=== PATIENT | male | born 1945 | race Caucasian/White ===

== ENCOUNTER 2021-12-12 12:32 | Emergency (ER) | payer OTHER ==
[2021-12-12 12:39] VITALS: BP 106/65; PULSE 67; RESP 18; TEMP 98; BMI 26.6
[2021-12-12] MEDS ORDERED: BEBTELOVIMAB (EUA) 175 MG/2 ML VIAL IVPUSH ONE (13:17)
== END 2021-12-12 15:50 | disposition home or self-care (01) ==
LOC: JCOVINFU 12:32
DX: U07.1 COVID-19 (principal)
CPT/HCPCS: 99284-25; M0222; Q0222

== ENCOUNTER 2023-04-01 04:09 | Day surgery (SDC) | payer OTHER ==
[2023-03-31 08:47] VITALS: BMI 24.9
[2023-04-01] MEDS ORDERED: FENTANYL CITRATE/PF 50 MCG/ML VIAL ONE (11:36)
[2023-04-01] MEDS ORDERED: MIDAZOLAM HCL 2 MG/2 ML SINGLE DOSE VIAL ONE (11:36)
[2023-04-01] MEDS ORDERED: SODIUM CHLORIDE 500 ML IV ONE (12:10)
[2023-04-01] MEDS ORDERED: FENTANYL CITRATE/PF 50 MCG/ML VIAL IVPUSH ONE ×2 (12:10→12:23)
[2023-04-01] MEDS ORDERED: MIDAZOLAM HCL 2 MG/2 ML SINGLE DOSE VIAL IVPUSH ONE ×2 (12:10→12:23)
[2023-04-01 14:24] VITALS: RESP 18; TEMP 98
[2023-04-01 14:38] VITALS: BP 136/76; PULSE 74
== END 2023-04-01 14:30 | disposition home or self-care (01) ==
LOC: JRADIR 04:09
PROVIDERS: ATTEND Student in an Organized Health Care Education/Training Program
PROC: 07DC3ZX Extraction of Pelvis Lymphatic, Percutaneous Approach, Diagnostic (ICD-10-PCS; principal; 2023-04-01)
DX: C61 Malignant neoplasm of prostate (principal)
CPT/HCPCS: 49180; 77012-TC; 88305-TC

== ENCOUNTER 2024-04-30 21:36 | Inpatient (IN) | payer OTHER ==
[2024-04-30] MEDS ORDERED: ACETAMINOPHEN INJECTION 100 ML ONE (22:07)
[2024-04-30] MEDS: ACETAMINOPHEN 1000 MG/100 ML BAG IVPB ONE (22:19)
[2024-04-30] MEDS: SODIUM CHLORIDE 0.9% 500 ML INFUS.BAG IV ONE (22:19)
[2024-04-30 22:34] LABS: EOS % 0.1 % (0-4.5); HEMATOCRIT 35.7 % (35.4-49); HEMOGLOBIN 10.9 GM/dL (11.7-16.9); LYMPH % 91.7 % (8-40); MCH 29.3 pg (25.7-33.7); MCHC 30.4 g/dl (32.0-35.9); MEAN CELL VOLUME 96.3 fl (80-96); MEAN PLT VOLUME 8.6 fl (7.5-11.1); NEUT % 8.2 % (42.8-82.8); PLATELET COUNT 191 10^3/uL (134-434); RBC 3.71 M/mm3 (4.00-5.60)
[2024-04-30] MEDS ORDERED: FAMOTIDINE 20 MG/50 ML IVPB 20 MG/50 ML MG IVPB ONE (22:37)
[2024-04-30] MEDS ORDERED: MAG HYDROX/AL HYDROX/SIMETH 30 ML UNIT-DOSE CUP ONE (22:37)
[2024-04-30 22:38] LABS: INR 1.5 (0.83-1.09); PROTHROMBIN TIME (PATIENT) 16.3 SEC (9.7-13.0); WHITE BLOOD COUNT 217.3 K/mm3 (4.0-10.0)
[2024-04-30] MEDS: FAMOTIDINE 20 MG/50 ML IVPB 20 MG/50 ML MG IVPB ONE (22:38)
[2024-04-30] MEDS: MAG HYDROX/AL HYDROX/SIMETH 30 ML UNIT-DOSE CUP PO ONE (22:38)
[2024-04-30 22:43] LABS: POTASSIUM 4.7 mmol/L (3.5-5.1)
[2024-04-30 22:45] LABS: ALBUMIN 3.5 g/dl (3.4-5.0); BLOOD UREA NITROGEN 18.8 mg/dL (7-18); CALCIUM 8.9 mg/dL (8.5-10.1)
[2024-04-30 22:48] LABS: CREATININE 1.1 mg/dL (0.55-1.3)
[2024-04-30 22:50] LABS: BILIRUBIN,TOTAL 1.3 mg/dL (0.2-1); TOT PROT 6.7 g/dl (6.4-8.2)
[2024-04-30 23:07] LABS: PLATELET ESTIMATE ADEQUATE
[2024-04-30] MEDS ORDERED: morphine SULFATE 4 MG/ML VIAL ONE (23:43)
[2024-04-30] MEDS: morphine CARPU-JECT 4 MG/1 ML DISP.SYRIN IVPUSH ONE (23:44)
[2024-04-30 23:54] LABS: PHOSPHOROUS 3.6 mg/dL (2.5-4.9)
[2024-04-30 23:58] LABS: N-TERMINAL BNP 4917.3 pg/ml (5-450)
[2024-05-01] MEDS ORDERED: morphine SULFATE 4 MG/ML VIAL ONE (00:18)
[2024-05-01] MEDS: morphine CARPU-JECT 4 MG/1 ML DISP.SYRIN IVPUSH ONE (00:21)
[2024-05-01] MEDS: FUROSEMIDE 40 MG/4 ML INJECTABLE VIAL IVPUSH ONE (02:50)
[2024-05-01] MEDS: ALBUTEROL SO4 2.5/IPRATROPIUM 0.5 INH SOL 3 ML VIAL.NEB. NEB ONE (03:09)
[2024-05-01 03:30] VITALS: BMI 27.0
[2024-05-01] MEDS ORDERED: HYOSCYAMINE SULFATE PO SCH (06:00)
[2024-05-01] MEDS: GABAPENTIN 400 MG CAPSULE PO SCH (06:09)
[2024-05-01] MEDS: ALBUTEROL SO4 2.5/IPRATROPIUM 0.5 INH SOL 3 ML VIAL.NEB. NEB PRN (07:20)
[2024-05-01 07:29] LABS: HEMATOCRIT 34.4 % (35.4-49); HEMOGLOBIN 10.5 GM/dL (11.7-16.9); MCH 29.6 pg (25.7-33.7); MCHC 30.5 g/dl (32.0-35.9); MEAN CELL VOLUME 96.9 fl (80-96); MEAN PLT VOLUME 9.2 fl (7.5-11.1); PLATELET COUNT 187 10^3/uL (134-434); RBC 3.55 M/mm3 (4.00-5.60); RDW 15.2 % (11.9-15.9)
[2024-05-01] MEDS ORDERED: PIPERACILLIN/TAZOB 3.375 GM 3.375 GM in DEXTROSE 5%-WATER - 50 ML IVPB SCH (07:30)
[2024-05-01 07:58] LABS: ALBUMIN 3.3 g/dl (3.4-5.0); BLOOD UREA NITROGEN 17.6 mg/dL (7-18); CALCIUM 8.5 mg/dL (8.5-10.1); MAGNESIUM 2.1 mg/dL (1.8-2.4)
[2024-05-01 08:01] LABS: CREATININE 1.2 mg/dL (0.55-1.3); PHOSPHOROUS 4.2 mg/dL (2.5-4.9)
[2024-05-01 08:02] LABS: BILIRUBIN,TOTAL 1.1 mg/dL (0.2-1); TOT PROT 6.3 g/dl (6.4-8.2)
[2024-05-01 08:11] LABS: BILIRUBIN,DIRECT 0.3 mg/dL (0.0-0.2)
[2024-05-01 08:56] LABS: WHITE BLOOD COUNT 223.9 K/mm3 (4.0-10.0)
[2024-05-01 09:26] LABS: EPI CELLS 1 /uL (0-25.1); HYALINE CASTS 0 /uL (0-3.1); PH,URINE 5.5 (5.0-8.0); URINE APPEARANCE CLEAR; URINE BACTERIA 7 /uL (0-1359); URINE BILIRUBIN NEGATIVE (NEGATIVE); URINE COLOR YELLOW; URINE GLUCOSE (UA) NEGATIVE (NEGATIVE); URINE KETONE NEGATIVE (NEGATIVE); URINE LEUK ESTERASE NEGATIVE (NEGATIVE); URINE NITRITE NEGATIVE (NEGATIVE); URINE PROTEIN NEGATIVE (NEGATIVE); URINE RBC 15 /uL (0-23.9); URINE UROBILINOGEN 0.2 mg/dL (0.2-1.0); URINE WBC 7 /uL (0-25.8)
[2024-05-01 11:00] LABS: ERYTHROCYTE SEDIMENTATION RATE 21 mm/hr (0-20)
[2024-05-01 12:40] LABS: HEPATITIS B SURFACE AG MATERN NON-REACTIVE (NONREACTIVE)
[2024-05-01] MEDS: POLYETHYLENE GLYCOL (HEALTHYLAX) 3350 17 GM PACKET PO SCH (12:46)
[2024-05-01] MEDS: PANTOPRAZOLE 40 MG TABLET PO SCH (12:48)
[2024-05-01] MEDS: PIPERACILLIN/TAZOB 3.375 GM 50 ML IVPB SCH ×2 (12:48→17:03)
[2024-05-01] MEDS: ENOXAPARIN NA (PORCINE) 40 MG/0.4 ML DISP.SYRIN SQ SCH (12:48)
[2024-05-01] MEDS: MULTIVITAMINS (DAILY MVI) TABLET (FP) PO SCH (12:49)
[2024-05-01] MEDS ORDERED: ALBUTEROL SO4 0.083% IH SOL 2.5 MG/3 ML VIAL.NEB. NEB PRN (13:35)
[2024-05-01] MEDS ORDERED: SODIUM CHLORIDE 1,000 ML IV SCH (14:30)
[2024-05-01] MEDS: SODIUM CHLORIDE 1,000 ML IV SCH (14:50)
[2024-05-01 16:52] LABS: PREALBUMIN 14.8 mg/dl (20-40)
[2024-05-01] MEDS: ACETAMINOPHEN 1000 MG/100 ML BAG IVPB PRN (17:07)
[2024-05-01] MEDS ORDERED: AMOX TR/POT CLAV 875MG/125MG TABLETS (FP) PO SCH (17:30)
[2024-05-01] MEDS: metoPROLOL SUCCINATE 25 MG TAB.SR.24H (FP) PO SCH (18:13)
[2024-05-01] MEDS: FUROSEMIDE 40 MG/4 ML INJECTABLE VIAL IVPUSH SCH (18:13)
[2024-05-01] MEDS: AMITRIPTYLINE HCL 25 MG TABLET PO SCH (21:04)
[2024-05-01] MEDS: TAMSULOSIN HCL 0.4 MG CAP PO SCH (21:05)
[2024-05-02 07:49] LABS: HEMOGLOBIN 10.8 GM/dL (11.7-16.9); MCHC 30.8 g/dl (32.0-35.9); MEAN CELL VOLUME 97.5 fl (80-96); MEAN PLT VOLUME 8.9 fl (7.5-11.1); PLATELET COUNT 179 10^3/uL (134-434); RBC 3.58 M/mm3 (4.00-5.60); RDW 15.8 % (11.9-15.9)
[2024-05-02 08:01] LABS: WHITE BLOOD COUNT 222.8 K/mm3 (4.0-10.0)
[2024-05-02 08:08] LABS: POTASSIUM 3.7 mmol/L (3.5-5.1)
[2024-05-02 08:10] LABS: ALBUMIN 3.3 g/dl (3.4-5.0); BLOOD UREA NITROGEN 20.1 mg/dL (7-18); CALCIUM 8.8 mg/dL (8.5-10.1); MAGNESIUM 2.3 mg/dL (1.8-2.4)
[2024-05-02 08:13] LABS: CREATININE 1.2 mg/dL (0.55-1.3)
[2024-05-02 08:14] LABS: PHOSPHOROUS 3.6 mg/dL (2.5-4.9)
[2024-05-02 08:15] LABS: TOT PROT 6.3 g/dl (6.4-8.2)
[2024-05-02 12:41] LABS: ANISOCYTOSIS 1+; MACROCYTOSIS 1+
[2024-05-02] MEDS: AMOX TR/POT CLAV 875MG/125MG TABLETS (FP) PO SCH (18:33)
[2024-05-02 22:09] LABS: FIBROSIS SCORE. 0.71 (0.00-0.21); HCV ALPHA 2 MACRO CHART 198 mg/dL (110-276); NECRO.INFLAM ACT.SCORE 0.13 (0.00-0.17); NECROINFLAM. ACTIVITY GRADE A0-No activity (.)
[2024-05-02] MEDS: ZOLPIDEM TARTRATE 5 MG TABLET PO PRN (22:35)
[2024-05-03 07:49] LABS: HEMATOCRIT 32.6 % (35.4-49); MCH 29.5 pg (25.7-33.7); MCHC 30.6 g/dl (32.0-35.9); MEAN CELL VOLUME 96.5 fl (80-96); MEAN PLT VOLUME 9.2 fl (7.5-11.1); PLATELET COUNT 189 10^3/uL (134-434); RBC 3.38 M/mm3 (4.00-5.60); RDW 15.5 % (11.9-15.9)
[2024-05-03 07:58] LABS: WHITE BLOOD COUNT 213.6 K/mm3 (4.0-10.0)
[2024-05-03 08:01] LABS: POTASSIUM 3.5 mmol/L (3.5-5.1)
[2024-05-03 08:05] LABS: CALCIUM 8.6 mg/dL (8.5-10.1)
[2024-05-03 08:06] LABS: ALBUMIN 3.1 g/dl (3.4-5.0); MAGNESIUM 2.3 mg/dL (1.8-2.4)
[2024-05-03 08:09] LABS: PHOSPHOROUS 4.1 mg/dL (2.5-4.9)
[2024-05-03 08:10] LABS: BILIRUBIN,TOTAL 0.7 mg/dL (0.2-1)
[2024-05-03] MEDS: POTASSIUM CHLORIDE TABS 20 MEQ TABLET.ER (FP) PO ONE (17:49)
[2024-05-04 06:57] LABS: HEMATOCRIT 32.9 % (35.4-49); MCH 29.6 pg (25.7-33.7); MCHC 30.4 g/dl (32.0-35.9); MEAN CELL VOLUME 97.5 fl (80-96); MEAN PLT VOLUME 9.2 fl (7.5-11.1); PLATELET COUNT 192 10^3/uL (134-434); RBC 3.37 M/mm3 (4.00-5.60); RDW 15.5 % (11.9-15.9)
[2024-05-04 07:14] LABS: POTASSIUM 3.2 mmol/L (3.5-5.1)
[2024-05-04 07:17] LABS: WHITE BLOOD COUNT 211.7 K/mm3 (4.0-10.0)
[2024-05-04 07:24] LABS: BLOOD UREA NITROGEN 23.3 mg/dL (7-18); CALCIUM 8.7 mg/dL (8.5-10.1)
[2024-05-04 07:27] LABS: CREATININE 1.2 mg/dL (0.55-1.3)
[2024-05-04 07:28] LABS: PHOSPHOROUS 3.3 mg/dL (2.5-4.9)
[2024-05-04 07:29] LABS: BILIRUBIN,TOTAL 0.6 mg/dL (0.2-1); TOT PROT 5.9 g/dl (6.4-8.2)
[2024-05-04] MEDS: POTASSIUM CHLORIDE TABS 20 MEQ TABLET.ER (FP) PO ONE (08:10)
[2024-05-04] MEDS: KCL 10 MEQ IVPB 10 MEQ/100 ML INFUS.BAG IVPB SCH (08:11)
[2024-05-04] MEDS: KCL 20 MEQ PREMIX BAG 20 MEQ/100 ML INFUS.BAG IVPB ONE (08:33)
[2024-05-04] MEDS: EMPAGLIFLOZIN (JARDIANCE) 10 MG TABLET PO SCH (12:15)
[2024-05-04] MEDS: SACUBITRIL/VALSARTAN 24 MG-26 MG TABLET PO SCH (14:05)
[2024-05-04] MEDS ORDERED: LIDOCAINE VISCOUS 2% ORAL/TOP 15 ML UNIT-DOSE CUP MM PRN (16:41)
[2024-05-04] MEDS: LYTES/YERBA SANTA 60 ML SPRAY MM SCH (21:19)
[2024-05-05 07:37] LABS: HEMOGLOBIN 11.1 GM/dL (11.7-16.9); MCHC 30.9 g/dl (32.0-35.9); MEAN CELL VOLUME 97.2 fl (80-96); MEAN PLT VOLUME 9.4 fl (7.5-11.1); PLATELET COUNT 191 10^3/uL (134-434); RDW 15.8 % (11.9-15.9)
[2024-05-05 07:41] LABS: WHITE BLOOD COUNT 215.5 K/mm3 (4.0-10.0)
[2024-05-05 07:56] LABS: POTASSIUM 3.8 mmol/L (3.5-5.1)
[2024-05-05 08:00] LABS: ALBUMIN 3.3 g/dl (3.4-5.0); BLOOD UREA NITROGEN 20.4 mg/dL (7-18); CALCIUM 9.1 mg/dL (8.5-10.1); MAGNESIUM 2.3 mg/dL (1.8-2.4)
[2024-05-05 08:04] LABS: CREATININE 1.1 mg/dL (0.55-1.3); PHOSPHOROUS 4.1 mg/dL (2.5-4.9)
[2024-05-05 08:05] LABS: BILIRUBIN,TOTAL 0.7 mg/dL (0.2-1); TOT PROT 6.6 g/dl (6.4-8.2)
[2024-05-05] MEDS: GABAPENTIN 100 MG CAPSULE PO SCH (09:13)
[2024-05-06] MEDS: EMPAGLIFLOZIN (JARDIANCE) 10 MG TABLET PO SCH (06:42)
[2024-05-06 08:45] VITALS: BP 100/60; RESP 18; TEMP 98
[2024-05-06] MEDS: FUROSEMIDE 20 MG TABLET (FP) PO ONE (09:38)
[2024-05-06 15:25] VITALS: PULSE 88
== END 2024-05-06 17:04 | disposition home or self-care (01) | DRG 840 ==
LOC: JER 21:36 → JERBED 23:25 → JICU 05-01 01:05 → J2W 05-01 19:30
PROVIDERS: ADMIT Internal Medicine
DX: C91.10 Chronic lymphocytic leukemia of B-cell type not having achieved remission (principal); I50.21 Acute systolic (congestive) heart failure; D84.9 Immunodeficiency, unspecified; E87.20 Acidosis, unspecified; I24.89 Other forms of acute ischemic heart disease; J98.11 Atelectasis; N40.0 Benign prostatic hyperplasia without lower urinary tract symptoms; I49.8 Other specified cardiac arrhythmias; R91.1 Solitary pulmonary nodule; I11.0 Hypertensive heart disease with heart failure; C61 Malignant neoplasm of prostate
CPT/HCPCS: 0241U-QW; 36415; 70450-TC; 71045-TC-FY; 71250-TC; 74174-TC; 76705-TC; 80053; 80061; 81003; 82172; 82248; 82550; 82977; 83010; 83036; 83605; 83690; 83735; 83880; 83883; 84100; 84134; 84155; 84165; 84439; 84443; 84460; 84484; 85025; 85610; 85651; 86140; 86480; 86704; 86706; 86707; 86709; 86850; 86900; 86901; 87040; 87086; 87340; 87350; 87517; 87522; 87902; 88300-TC; 93005; 93010; 93306-TC; 94640; 99285-25; J0131; Q9967

== ENCOUNTER 2024-05-15 14:34 | Observation (INO) | payer OTHER ==
[2024-05-15 15:49] LABS: HEMATOCRIT 37.9 % (35.4-49); HEMOGLOBIN 11.9 GM/dL (11.7-16.9); MCH 30.1 pg (25.7-33.7); MCHC 31.3 g/dl (32.0-35.9); MEAN CELL VOLUME 96.2 fl (80-96); MEAN PLT VOLUME 9.5 fl (7.5-11.1); PLATELET COUNT 149 10^3/uL (134-434); RBC 3.94 M/mm3 (4.00-5.60); RDW 16.3 % (11.9-15.9)
[2024-05-15 15:52] LABS: WHITE BLOOD COUNT 178.5 K/mm3 (4.0-10.0)
[2024-05-15 16:11] LABS: POTASSIUM 3.9 mmol/L (3.5-5.1)
[2024-05-15 16:15] LABS: ALBUMIN 3.8 g/dl (3.4-5.0); BLOOD UREA NITROGEN 24.7 mg/dL (7-18)
[2024-05-15 16:18] LABS: CREATININE 1.3 mg/dL (0.55-1.3)
[2024-05-15 16:19] LABS: BILIRUBIN,TOTAL 0.6 mg/dL (0.2-1); TOT PROT 7.1 g/dl (6.4-8.2)
[2024-05-15 16:38] LABS: ANISOCYTOSIS 1+; MACROCYTOSIS 1+
[2024-05-15] MEDS ORDERED: PATIENT'S OWN MEDICATION (NON-FORMULARY) (Alfuzosin Hcl [Alfuzosin Hcl Er] 10 MG Tab.Er.24 PO SCH (22:00)
[2024-05-15] MEDS: PANTOPRAZOLE 40 MG TABLET PO SCH (22:42)
[2024-05-15] MEDS: ZOLPIDEM TARTRATE 5 MG TABLET PO PRN (22:42)
[2024-05-15] MEDS: SACUBITRIL/VALSARTAN 24 MG-26 MG TABLET PO SCH (22:42)
[2024-05-15] MEDS: GABAPENTIN 100 MG CAPSULE PO SCH (22:42)
[2024-05-15] MEDS: AMITRIPTYLINE HCL 25 MG TABLET PO SCH (22:49)
[2024-05-16 00:15] VITALS: BMI 25.7
[2024-05-16] MEDS: metoPROLOL SUCCINATE 25 MG TAB.SR.24H (FP) PO ONE (01:06)
[2024-05-16] MEDS: EMPAGLIFLOZIN (JARDIANCE) 10 MG TABLET PO SCH (06:39)
[2024-05-16 07:21] LABS: HEMATOCRIT 33.5 % (35.4-49); MCH 30.6 pg (25.7-33.7); MCHC 32.7 g/dl (32.0-35.9); MEAN CELL VOLUME 93.6 fl (80-96); MEAN PLT VOLUME 9.4 fl (7.5-11.1); PLATELET COUNT 132 10^3/uL (134-434); RBC 3.58 M/mm3 (4.00-5.60); RDW 15.7 % (11.9-15.9)
[2024-05-16 07:30] LABS: WHITE BLOOD COUNT 195.7 K/mm3 (4.0-10.0)
[2024-05-16 07:56] LABS: POTASSIUM 3.8 mmol/L (3.5-5.1)
[2024-05-16 07:57] LABS: ALBUMIN 3.4 g/dl (3.4-5.0); BLOOD UREA NITROGEN 20.8 mg/dL (7-18); MAGNESIUM 2.3 mg/dL (1.8-2.4)
[2024-05-16 08:01] LABS: CREATININE 1.2 mg/dL (0.55-1.3)
[2024-05-16 08:02] LABS: PHOSPHOROUS 3.9 mg/dL (2.5-4.9)
[2024-05-16 08:03] LABS: BILIRUBIN,TOTAL 0.6 mg/dL (0.2-1); TOT PROT 6.2 g/dl (6.4-8.2)
[2024-05-16 09:51] LABS: ANISOCYTOSIS 1+; MACROCYTOSIS 0
[2024-05-16] MEDS ORDERED: HYOSCYAMINE SULFATE PO SCH (10:00)
[2024-05-16] MEDS ORDERED: LYTES/YERBA SANTA 60 ML SPRAY MM SCH (10:00)
[2024-05-16] MEDS: ENOXAPARIN NA (PORCINE) 40 MG/0.4 ML DISP.SYRIN SQ SCH (11:05)
[2024-05-16] MEDS: metoPROLOL SUCCINATE 25 MG TAB.SR.24H (FP) PO SCH (11:07)
[2024-05-16 13:05] LABS: N-TERMINAL BNP 1286.2 pg/ml (5-450)
[2024-05-16 14:16] VITALS: BP 126/51; PULSE 83; RESP 18; TEMP 97.2
== END 2024-05-16 14:20 | disposition home or self-care (01) ==
LOC: JER 14:34 → JERBED 20:05 → J4S 21:54
PROVIDERS: ADMIT Internal Medicine
PROC: 3E023GC Introduction of Other Therapeutic Substance into Muscle, Percutaneous Approach (ICD-10-PCS; principal; 2024-05-15)
DX: I48.91 Unspecified atrial fibrillation (principal); I11.0 Hypertensive heart disease with heart failure; C91.10 Chronic lymphocytic leukemia of B-cell type not having achieved remission; K58.9 Irritable bowel syndrome, unspecified; I49.3 Ventricular premature depolarization; R00.8 Other abnormalities of heart beat; C61 Malignant neoplasm of prostate
CPT/HCPCS: 36415; 71045-TC-FY; 80053; 82962; 83735; 83880; 84100; 84439; 84484; 85025; 93005; 93010; 96361; 96365; 96366; 96372; 96375; 99285-25; G0378

== ENCOUNTER 2024-05-25 09:30 | Day surgery (SDC) | payer OTHER ==
[2024-05-25] MEDS: SODIUM CHLORIDE 250 ML IV ONE (10:15)
[2024-05-25 11:20] LABS: HEMATOCRIT 35.6 % (35.4-49); HEMOGLOBIN 10.8 GM/dL (11.7-16.9); MCH 29.6 pg (25.7-33.7); MCHC 30.4 g/dl (32.0-35.9); MEAN CELL VOLUME 97.2 fl (80-96); MEAN PLT VOLUME 9.6 fl (7.5-11.1); PLATELET COUNT 119 10^3/uL (134-434); RBC 3.67 M/mm3 (4.00-5.60); RDW 15.9 % (11.9-15.9)
[2024-05-25 11:31] LABS: WHITE BLOOD COUNT 207.8 K/mm3 (4.0-10.0)
[2024-05-25 11:43] LABS: POTASSIUM 4.3 mmol/L (3.5-5.1)
[2024-05-25 11:50] LABS: ALBUMIN 3.5 g/dl (3.4-5.0); BLOOD UREA NITROGEN 20.4 mg/dL (7-18); CALCIUM 8.8 mg/dL (8.5-10.1); MAGNESIUM 2.1 mg/dL (1.8-2.4)
[2024-05-25 11:52] LABS: URIC ACID 3.4 mg/dL (2.6-7.2)
[2024-05-25 11:53] LABS: CREATININE 1.4 mg/dL (0.55-1.3)
[2024-05-25 11:54] LABS: BILIRUBIN,TOTAL 0.5 mg/dL (0.2-1); TOT PROT 6.5 g/dl (6.4-8.2)
[2024-05-25] MEDS: DIPHENHYDRAMINE 25 MG in SODIUM CHLORIDE 50 ML IVPB ONE (12:08)
[2024-05-25] MEDS: ACETAMINOPHEN 325 MG TABLET (FP) PO ONE (12:08)
[2024-05-25] MEDS: RITUXIMAB PVVR IVPB ONE (12:34)
[2024-05-25] MEDS: SODIUM CHLORIDE IVPB ONE (12:34)
[2024-05-25] MEDS: SODIUM CHLORIDE 750 ML IV ONE (13:18)
[2024-05-25] MEDS: FAMOTIDINE 20 MG/50 ML IVPB 20 MG/50 ML MG IVPB ONE (13:18)
[2024-05-25] MEDS: DEXAMETHASONE SOD PHOSPHATE 4 MG/1 ML VIAL IVPUSH ONE (13:20)
[2024-05-25] MEDS ORDERED: DEXAMETHASONE SOD PHOSPHATE 10 MG/1 ML VIAL ONE (13:25)
[2024-05-25] MEDS: methylPREDNISolone NA SUCC 125 MG/2 ML VIAL IVPUSH ONE (15:40)
[2024-05-25 17:40] VITALS: RESP 18
[2024-05-25 18:39] VITALS: TEMP 98.2
[2024-05-25 19:18] VITALS: BP 104/47; PULSE 88
== END 2024-05-25 19:25 | disposition home or self-care (01) ==
LOC: JONCCHEMO 09:30
PROVIDERS: ATTEND Internal Medicine Hematology & Oncology
PROC: 3E03305 Introduction of Other Antineoplastic into Peripheral Vein, Percutaneous Approach (ICD-10-PCS; principal; 2024-05-25)
PROC: 3E0333Z Introduction of Anti-inflammatory into Peripheral Vein, Percutaneous Approach (ICD-10-PCS; 2024-05-25)
DX: Z51.11 Encounter for antineoplastic chemotherapy (principal); C91.10 Chronic lymphocytic leukemia of B-cell type not having achieved remission
CPT/HCPCS: 36415; 80053; 83615; 83735; 84550; 85025; 96368; 96413; 96415; J1100; Q5119

== ENCOUNTER 2024-05-27 08:25 | Observation (INO) | payer OTHER ==
[2024-05-27 08:52] LABS: URINE APPEARANCE CLEAR; URINE BILIRUBIN NEGATIVE (NEGATIVE); URINE COLOR YELLOW; URINE GLUCOSE (UA) 3+ (NEGATIVE); URINE KETONE NEGATIVE (NEGATIVE); URINE LEUK ESTERASE NEGATIVE (NEGATIVE); URINE NITRITE NEGATIVE (NEGATIVE); URINE PROTEIN NEGATIVE (NEGATIVE); URINE UROBILINOGEN 0.2 mg/dL (0.2-1.0)
[2024-05-27 09:05] LABS: VENOUS BASE EXCESS -4.1 mmol/L (-2-2); VENOUS O2 SATURATION 71.7 % (70-80); VENOUS PCO2 33.4 mmHg (38-52); VENOUS PH 7.394 (7.310-7.410)
[2024-05-27 09:06] LABS: HEMATOCRIT 35.7 % (35.4-49); HEMOGLOBIN 11.6 GM/dL (11.7-16.9); MCH 30.2 pg (25.7-33.7); MCHC 32.4 g/dl (32.0-35.9); MEAN CELL VOLUME 93.3 fl (80-96); MEAN PLT VOLUME 9.6 fl (7.5-11.1); PLATELET COUNT 100 10^3/uL (134-434); RBC 3.83 M/mm3 (4.00-5.60); RDW 16.3 % (11.9-15.9)
[2024-05-27] MEDS: SODIUM CHLORIDE 0.9% 500 ML INFUS.BAG IV ONE (09:09)
[2024-05-27 09:12] LABS: WHITE BLOOD COUNT 49.9 K/mm3 (4.0-10.0)
[2024-05-27 09:14] LABS: INR 1.14 (0.83-1.09); PROTHROMBIN TIME (PATIENT) 12.4 SEC (9.7-13.0)
[2024-05-27 09:17] LABS: ACTIVATED PTT 24.4 SECONDS (25.2-36.5)
[2024-05-27 09:46] LABS: CHLORIDE 111 mmol/L (98-107); SODIUM 138 mmol/L (136-145)
[2024-05-27 09:48] LABS: CALCIUM 8.4 mg/dL (8.5-10.1)
[2024-05-27 09:49] LABS: ALBUMIN 3.4 g/dl (3.4-5.0); BLOOD UREA NITROGEN 33.7 mg/dL (7-18); CO2 23 mmol/L (21-32); GLUCOSE,RANDOM 107 mg/dL (74-106); MAGNESIUM 2.6 mg/dL (1.8-2.4)
[2024-05-27 09:52] LABS: CREATININE 1.1 mg/dL (0.55-1.3); PHOSPHOROUS 4.5 mg/dL (2.5-4.9); SGOT/AST 66 U/L (15-37); SGPT/ALT 29 U/L (13-61); URIC ACID 3.5 mg/dL (2.6-7.2)
[2024-05-27 09:53] LABS: BILIRUBIN,TOTAL 0.4 mg/dL (0.2-1); TOT PROT 6.6 g/dl (6.4-8.2)
[2024-05-27 09:54] LABS: ALK PHOS 84 U/L (45-117)
[2024-05-27 10:02] LABS: ANISOCYTOSIS 0; HELMET CELLS 0; HOWELL-JOLLY BODIES 0; MACROCYTOSIS 0; OVALOCYTE 0; ROULEAU 0; SICKELED CELLS 0; TARGET CELLS 0; TEAR DROP CELLS 0; TOXIC GRANULATION 0
[2024-05-27 11:05] LABS: ANION GAP 5 mmol/L (4-13); LDH 1443 U/L (87-246); POTASSIUM 6.4 mmol/L (3.5-5.1)
[2024-05-27 13:37] LABS: POTASSIUM 3.7 mmol/L (3.5-5.1)
[2024-05-27 13:40] LABS: CALCIUM 8.4 mg/dL (8.5-10.1)
[2024-05-27 13:41] LABS: ALBUMIN 3.4 g/dl (3.4-5.0); BLOOD UREA NITROGEN 30.4 mg/dL (7-18)
[2024-05-27 13:44] LABS: CREATININE 1.2 mg/dL (0.55-1.3)
[2024-05-27 13:45] LABS: BILIRUBIN,TOTAL 0.3 mg/dL (0.2-1); TOT PROT 6.3 g/dl (6.4-8.2)
[2024-05-27 15:15] VITALS: BMI 26.2
[2024-05-27] MEDS: PANTOPRAZOLE 40 MG TABLET PO SCH (21:09)
[2024-05-27] MEDS: HEPARIN NA (PORCINE) 5,000 UNITS/ML 1ML VIAL SQ SCH (21:09)
[2024-05-28 08:20] LABS: HEMATOCRIT 33.1 % (35.4-49); HEMOGLOBIN 11.3 GM/dL (11.7-16.9); MCH 31.4 pg (25.7-33.7); MCHC 34.2 g/dl (32.0-35.9); MEAN CELL VOLUME 91.9 fl (80-96); MEAN PLT VOLUME 9.8 fl (7.5-11.1); PLATELET COUNT 105 10^3/uL (134-434)
[2024-05-28 08:40] LABS: WHITE BLOOD COUNT 36.3 K/mm3 (4.0-10.0)
[2024-05-28] MEDS: POLYETHYLENE GLYCOL (HEALTHYLAX) 3350 17 GM PACKET PO ONE (08:59)
[2024-05-28 09:01] LABS: MAGNESIUM 2.3 mg/dL (1.8-2.4)
[2024-05-28] MEDS: metoPROLOL SUCCINATE 25 MG TAB.SR.24H (FP) PO SCH (09:01)
[2024-05-28 09:05] LABS: PHOSPHOROUS 3.7 mg/dL (2.5-4.9)
[2024-05-28 09:07] LABS: ALBUMIN 3.1 g/dl (3.4-5.0); CALCIUM 8.1 mg/dL (8.5-10.1)
[2024-05-28 09:09] LABS: BLOOD UREA NITROGEN 25.8 mg/dL (7-18)
[2024-05-28 09:11] LABS: CREATININE 0.9 mg/dL (0.55-1.3)
[2024-05-28 09:12] LABS: TOT PROT 5.6 g/dl (6.4-8.2)
[2024-05-28 09:19] LABS: BILIRUBIN,TOTAL 0.4 mg/dL (0.2-1)
[2024-05-28] MEDS ORDERED: metoPROLOL SUCCINATE 25 MG TAB.SR.24H (FP) PO SCH ×2 (10:00)
[2024-05-28 11:34] LABS: ANISOCYTOSIS 0; HELMET CELLS 0; HOWELL-JOLLY BODIES 0; MACROCYTOSIS 0; OVALOCYTE 0; ROULEAU 0; SICKELED CELLS 0; TARGET CELLS 0; TEAR DROP CELLS 0; TOXIC GRANULATION 0
[2024-05-28] MEDS: POLYETHYLENE GLYCOL (HEALTHYLAX) 3350 17 GM PACKET PO SCH (12:59)
[2024-05-28] MEDS: ACETAMINOPHEN 1000 MG/100 ML BAG IVPB PRN (17:21)
[2024-05-28] MEDS ORDERED: SUCRALFATE 1 GM/10 ML UNIT DOSE CUPS PO SCH (18:42)
[2024-05-28] MEDS: SUCRALFATE 1 GM TABLET (FP) PO SCH (21:24)
[2024-05-28] MEDS: MELATONIN 5 MG TABLETS PO PRN (22:33)
[2024-05-29 06:34] VITALS: RESP 18
[2024-05-29 10:32] LABS: POTASSIUM 3.7 mmol/L (3.5-5.1)
[2024-05-29 10:35] LABS: CALCIUM 8.5 mg/dL (8.5-10.1)
[2024-05-29 10:36] LABS: BLOOD UREA NITROGEN 17.3 mg/dL (7-18)
[2024-05-29 10:40] LABS: CREATININE 0.9 mg/dL (0.55-1.3)
[2024-05-29 10:48] LABS: HEMATOCRIT 36.2 % (35.4-49); HEMOGLOBIN 11.7 GM/dL (11.7-16.9); MCHC 32.4 g/dl (32.0-35.9); MEAN CELL VOLUME 92.4 fl (80-96); MEAN PLT VOLUME 9.8 fl (7.5-11.1); PLATELET COUNT 125 10^3/uL (134-434); RBC 3.92 M/mm3 (4.00-5.60); RDW 15.7 % (11.9-15.9); WHITE BLOOD COUNT 24.6 K/mm3 (4.0-10.0)
[2024-05-29] MEDS: DICYCLOMINE HCL 20 MG/2 ML AMPUL IM ONE (12:16)
[2024-05-29 15:06] VITALS: TEMP 97.9
[2024-05-29 15:52] VITALS: BP 105/47; PULSE 65
== END 2024-05-29 16:00 | disposition home health service (06) ==
LOC: JER 08:25 → JERBED 13:41 → J4W 14:38
PROVIDERS: ADMIT Student in an Organized Health Care Education/Training Program; ATTEND Student in an Organized Health Care Education/Training Program
PROC: 3E023GC Introduction of Other Therapeutic Substance into Muscle, Percutaneous Approach (ICD-10-PCS; principal; 2024-05-27)
PROC: 3E033NZ Introduction of Analgesics, Hypnotics, Sedatives into Peripheral Vein, Percutaneous Approach (ICD-10-PCS; 2024-05-27)
PROC: 3E0337Z Introduction of Electrolytic and Water Balance Substance into Peripheral Vein, Percutaneous Approach (ICD-10-PCS; 2024-05-27)
DX: I95.1 Orthostatic hypotension (principal); I11.0 Hypertensive heart disease with heart failure; I49.3 Ventricular premature depolarization; I45.9 Conduction disorder, unspecified; C91.10 Chronic lymphocytic leukemia of B-cell type not having achieved remission; K58.9 Irritable bowel syndrome, unspecified; R00.8 Other abnormalities of heart beat; C61 Malignant neoplasm of prostate; S09.90XA Unspecified injury of head, initial encounter; W18.39XA Other fall on same level, initial encounter; Y93.89 Activity, other specified; Y92.008 Other place in unspecified non-institutional (private) residence as the place of occurrence of the external cause
CPT/HCPCS: 0241U-QW; 36415; 70450-TC; 71045-TC-FY; 74177-TC; 80048; 80053; 81003; 82803; 82962; 83036; 83615; 83735; 84100; 84484; 84550; 85025; 85610; 85730; 86850; 86900; 86901; 93005; 93010; 96372; 96374; 97116-GP; 99285-25; G0378; J0131; J1644; Q9967